=== PATIENT | female | born 1970 | race Caucasian/White ===

== ENCOUNTER → 2017-07-12 | Outpatient (CLI) | payer OTHER | LOC: FIMAGING 09:19 | PROVIDERS: ATTEND Family Medicine | DX: Z12.31 Encounter for screening mammogram for malignant neoplasm of breast (principal) | CPT/HCPCS: G0202 ==

== ENCOUNTER → 2017-11-15 | Outpatient (CLI) | payer BC | LOC: FIMAGING 08:55 | PROVIDERS: ATTEND Family Medicine | DX: R22.32 Localized swelling, mass and lump, left upper limb (principal) ==